=== PATIENT | female | born 1995 | race Caucasian/White ===

== ENCOUNTER 2022-09-13 13:33 | Outpatient (CLI) | payer BC, SELFPAY ==
--- NOTE | 2022-09-13 14:00 | CRLHL7_ITS ---
For Patients: As a result of the Century Cures Act, medical imaging exams and procedure reports are released immediately into your electronic medical record. You may view this report before your referring provider. If you have questions, please contact your health care provider. INDICATION: Evaluate anatomy. COMPARISON: 07/02/2022 TECHNIQUE: Real time norton scale imaging of the fetus was performed as well as color Doppler analysis of the umbilical vessels. FINDINGS: Sonographic imaging demonstrates a single living intrauterine gestation. Fetus demonstrates a regular cardiac rate of 137 beats per minute. Fetus has a longitudinal vertex position. The placenta lies posteriorly without evidence of placenta previa. The placental edge is 3.0 cm from the internal cervical os. Amniotic fluid volume appears normal. Single deepest vertical pocket: 4.0 cm. The cervix is closed and measures 3.7 cm in length. The composite ultrasound gestational age is calculated at 19 weeks 4 days with an estimated sonographic due date of 02/03/2023. The estimated weight is 287 grams which lies at the 33rd %. The following biometric measurements were obtained: Biparietal diameter: 4.5 cm/19 weeks 4 days 53rd% Head circumference: 16.4 cm/19 weeks 1 day 24th% Abdominal circumference: 13.9 cm/19 weeks 2 days 36th% Femur length: 3.0 cm/19 weeks 3 days 36th% The HC/AC ratio measures: 1.18 range (1.08-1.26) On anatomic survey, there is a normal appearance of the cerebral ventricles, cavum septi pellucidi, cisterna magna and cerebellum. The nose, lips, and facial profile appear normal. The cervical, thoracic and lumbar spine are well visualized and appear normal. There is a normal four-chamber heart view and the left and right ventricular outflow tracts appear normal. The diaphragm and stomach appear normal. The kidneys and bladder also appear normal. There is a normal three-vessel cord and cord insertion site. The four extremities appear normal. IMPRESSION: Normal OB ultrasound exam with concordance of clinical and sonographic dating. No intrinsic abnormalities noted on anatomic survey. Dictated by Samuel Esteban MD @ 09/16/2022 9:47:56 AM (Electronically Signed)
== END 2022-09-13 13:34 | disposition home or self-care (01) ==
LOC: US 13:34
PROVIDERS: Visit Provider Physician Assistant
DX: Z34.92 Encounter for supervision of normal pregnancy, unspecified, second trimester (principal); Z3A.19 19 weeks gestation of pregnancy
CPT/HCPCS: 76805

== ENCOUNTER 2022-11-11 08:27 | Outpatient (CLI) | payer BC, SELFPAY | END 2022-11-11 08:28 | disposition home or self-care (01) | LOC: NFLDREF 08:28 | PROVIDERS: Visit Provider Obstetrics & Gynecology | DX: O26.893 Other specified pregnancy related conditions, third trimester (principal); Z67.91 Unspecified blood type, Rh negative; Z3A.28 28 weeks gestation of pregnancy | CPT/HCPCS: 86592; 86850; J2791 ==

== ENCOUNTER 2023-01-10 13:37 | Outpatient (CLI) | payer BC, SELFPAY ==
[2023-01-11 13:56] LABS: Strep B DNA Probe Negative (Negative); Strep B Susceptibility Needed? No
== END 2023-01-10 13:38 | disposition home or self-care (01) ==
LOC: NFLDREF 13:38
PROVIDERS: Visit Provider Obstetrics & Gynecology
DX: Z34.93 Encounter for supervision of normal pregnancy, unspecified, third trimester (principal); Z3A.36 36 weeks gestation of pregnancy
CPT/HCPCS: 87081; 87653

== ENCOUNTER 2023-02-09 15:49 | Inpatient (IN) | payer BC, SELFPAY ==
[2023-02-09] VITALS (9 sets, daily range): BP systolic 119–132; BP diastolic 75–89; PULSE 82–99; RESP 16; TEMP 36.6–36.9; O2SAT 97; BMI 38.9
--- NOTE | 2023-02-09 16:37 | P.LDBA_ITS ---
Subjective History of Present Illness Date Seen: 02/09/23 Narrative: Patient is being admitted to Labor and Delivery for postdates induction of labor. She is a 27 year old at 40 weeks, 6 days gestation. Her full history and physical was dictated by Dr. Cain on 01/17/2023. Please see this for details. Specific Issues/Plans : Solomon. Baby: Boy! [place] Name 1. RH negative * Rhogam: 11/11/2022 2. Vaccine refusal * Patient declined flu, COVID booster, and Tdap 3. Elevated diastolic BP on 01/17/23, normal upon repeat RSV: 01/10/2023 COVID: Completed and boosted x1 TDap: Declines 11/27 and 01/10/2023 Flu: Declines 11/27 OB - Problem Based A/P Additional Plan (1) Post-dates : Status: Acute Plan Cook catheter placed using aseptic technique, and both intrauterine and intravaginal balloons inflated to 60 mL. Patient tolerated procedure well. Begin low-dose Pitocin at 9:00 p.m.. Continuous monitoring well Pitocin in use. Delivery/Labor/Induction Plan Induction method: Intracervical balloon catheter OB Result Labs GBS Status: negative OB Exam Physical Exam Vital signs: Temp Pulse Resp BP Pulse Ox 97.9 F 96 16 130/75 97 02/09/23 16:11 02/09/23 16:12 02/09/23 16:11 02/09/23 16:12 02/09/23 16:12 Narrative: Physical exam: General: No acute distress Psych: Alert and oriented x3, full affect HEENT: Normocephalic, atraumatic Neck: No cervical adenopathy, no thyromegaly Heart: Regular rate and rhythm, no murmur rub or gallop Lungs: Clear to auscultation bilaterally Abdomen: Soft, nontender, gravid, cephalic lie, 7.5 lb by Jordan's Pelvic exam: Cervix 1 cm, 50% effaced,-1 station, posterior, moderate consistency tracing: Baseline 120, accelerations present, decelerations, moderate variability. Detailed Labor and Delivery Exam Dilation (cm): 1 Effacement (%): 50 Cervix position: posterior Consistency: medium
[2023-02-09] MEDS: LACTATED RINGERS 1000 ML 1,000 ML 125 ML IV (20:55)
[2023-02-09 20:56] LABS: Basophils Percent Auto 0.1 % (0.0-3.0); Eosinophils Percent Auto 0.5 % (0.0-7.0); Hematocrit 38.2 % (33.0-51.0); Hemoglobin* 12.9 gm/dL (12.0-16.0); Immature Granulocytes Pct Auto 0.5 %; Lymphocytes Percent Auto 11.5 % (20-44); Mean Corpuscular HGB Conc 34 gm/dL (32-36); Mean Corpuscular Hemoglobin 30 pg (26-34); Mean Corpuscular Volume 90 fL (80-100); Monocytes Percent Auto 7.6 % (0.0-11.0); Neutrophils Percent Auto 79.8 % (42.0-72.0); Platelet Count* 251 K/uL (140-440); RDW Coefficient of Variation % 13.8 % (11.5-15.5); Red Blood Count 4.26 m/uL (4.00-5.20); White Blood Count* 14.91 K/uL (4.50-11.00)
[2023-02-09 21:00] LABS: Slide Review Reflex No
[2023-02-09] MEDS: OXYTOCIN 30 unit/500 ML in NS 30 UNIT/500 ML BAG IVPB (21:00)
[2023-02-09] MEDS: hydrOXYzine pamoate 25 MG CAPSULE 100 MG PO (22:18)
[2023-02-09] MEDS: MORPHINE 10 MG/ML inj IM (22:19)
[2023-02-10] VITALS (130 sets, daily range): BP systolic 71–170; BP diastolic 38–92; PULSE 83–142; RESP 16–18; TEMP 36.3–37; O2SAT 82–100
[2023-02-10] MEDS: LACTATED RINGERS 1000 ML 1,000 ML 125 ML IV ×3 (05:00→15:10)
--- NOTE | 2023-02-10 08:00 | PM.OBPNL ---
Subjective Time Seen by Provider: 08:00 Date Seen: 02/10/23 Objective Vital Signs: Last Vital Signs Temp 98 F 02/10/23 06:18 Pulse 109 H 02/10/23 07:57 Resp 18 02/10/23 06:18 BP 148/84 H 02/10/23 07:57 Pulse Ox 99 02/10/23 07:56 Pelvic Exam Dilation (cm): 5 Effacement (%): 90 Station: 0 Contractions Monitor mode: External Contraction Frequency: Q2 minutes Contraction pattern: Regular Contraction intensity: Strong/Firm Pitocin Rate (mU/min): 6 Assessment Assessment: active labor Status: Category ll Heart Rate Baseline: 120 Security System Administrator Variability: Moderate (6-25) Monitor Accelerations: Present Monitor Decelerations: Early Tracing Comments: Patient starting to have a few variables and some early decelerations. Spontaneously resolves with resolution of contraction. Labor Progress: Progressing appropriately Plan Plan: - Patient desires an epidural as she is significantly more uncomfortable within the last hour - Will contact anesthesia team
[2023-02-10] MEDS: ROPIVACAINE 0.2 % PF 10 ML INJ 20 MG EPIDURAL (08:01)
[2023-02-10] MEDS: ROPIVACAINE 0.2% 100 ml 100 ML 12 MG EPIDURAL (08:03)
[2023-02-10] MEDS: PHENYLEPHRINE 100 MCG/ML SYRINGE IVP ×6 (08:13→08:57)
[2023-02-10] MEDS: ePHEDrine sulfate 5 MG/ML inj 10 MG IVP ×2 (08:40→09:06)
[2023-02-10] MEDS: LACTATED RINGERS 1000 ML 1,000 ML 925 ML IV (09:25)
--- NOTE | 2023-02-10 09:43 | PM.OBPNL ---
Subjective Time Seen by Provider: 08:45 Date Seen: 02/10/23 Objective Vital Signs: Last Vital Signs Temp 98 F 02/10/23 06:18 Pulse 110 H 02/10/23 09:42 Resp 18 02/10/23 06:18 BP 101/57 L 02/10/23 09:42 Pulse Ox 96 02/10/23 09:09 Pelvic Exam Dilation (cm): 5 Effacement (%): 90 Station: 0 Contractions Monitor mode: External Contraction pattern: Regular Contraction intensity: Strong/Firm Pitocin Rate (mU/min): 6 Assessment Status: Category ll Heart Rate Baseline: 120 Monitor Accelerations: Present Monitor Decelerations: Late Tracing Comments: Patient with some prolonged and late decelerations shortly after epidural placement. Patient repositioned on her hands and knees. Pitocin stopped and FSE placed. Her hypotension was treated with phenylephrine and IV fluid bolus. FHR improved with resuscitative measures. Plan Plan: - Cervical exam unchanged - Expectant management for now - Will restart pitocin as needed after FHR recovery
--- NOTE | 2023-02-10 11:40 | P.OBPN_ITS ---
Subjective Time Seen by Provider: 12:42 Date Seen: 02/10/23 Objective Vital Signs: Last Vital Signs Temp 98.1 F 02/10/23 11:30 Pulse 120 H 02/10/23 11:34 Resp 18 02/10/23 11:30 BP 106/52 L 02/10/23 11:34 Pulse Ox 97 02/10/23 10:22 Pelvic Exam Dilation (cm): 5 Effacement (%): 90 Station: 0 Comments: Caput noted on exam. Contractions Monitor mode: External Contraction pattern: Irregular Contraction intensity: Moderate Pitocin Rate (mU/min): 0 Assessment Assessment: early labor Station: 0 Amniotic Membrane Status: SROM (0630) Status: Category ll Heart Rate Baseline: 120 Senior Living Variability: Moderate (6-25) Monitor Accelerations: Present Monitor Decelerations: Prolonged Tracing Comments: Patient had intermittent late and variable decelerations after epidural placement due to hypotension. After the hypotension was treated, patient had 7 minutes spontaneous prolonged deceleration down to the 90s without being on pitocin at 1017. Patient was repositioned and cervical exam was unchanged at that time. Positive scalp stim noted with cervical exam. Discussed with patient that we'll give her time for recovery, try starting pitocin if appropriate, and see how the fetus responses. After 30+ minutes of Cat I strip, Pitocin was restarted at 1150 at 2u. Patient contracts infrequently without pitocin. Patient had another prolonged decel (5 minutes) down to the 90s. Resolved with cessation of pitocin. strip still with moderate variability and accelerations. Cervical exam at that time as 5/90/0 with caput noted. Given that we are unable to start pitocin safely and she's not having many contractions without Pitocin, I believe it's safest to proceed with delivery. The patient was consented for section and blood. She understands that the four main categories of risk include pain, bleeding, infection, and damage to surrounding structures. Regarding infection, she understands that we will be delivering appropriate antibiotics, however that the risk of infection following section still is approximately 5%. She understands that though the risk is very low that there is always a risk of damage to the bladder, uterus, ovaries, fallopian tubes, bowels, ureters, or even the fetus. She understands t hat most injuries can be addressed at the time of surgery, however, such an injury may require additional surgeries to fix. Lastly, she understands that a section carries a risk of bleeding, and that while this bleeding can be addressed with multiple medical and surgical modalities, that there is the possibility of needing a blood transfusion. She reports she would accept a blood transfusion understanding the risks of a 1/200,000 risk of Hepatitis and 1/2,000,000 risk of HIV as well as the risk of having an allergic reaction to the blood products. She further understands that this reaction is typically mild, however can be severe including respiratory distress and necessitating ICU-level care. Lastly, she understands that a section does increase risks for future pregnancies and deliveries including, but not limited to, the risk of uterine rupture or placenta accreta. All questions answered to patient's and her spouse's (Aquilino) satisfaction. Would like to proceed with primary delivery. Consent signed and OR team notified.
[2023-02-10] MEDS: AZITHROMYCIN 500 MG in 0.9 % SODIUM CHLORIDE 250 ml 250 ML 255 MG IVPB (12:37)
[2023-02-10] MEDS: CEFAZOLIN 1 GM inj 3 GM IVP (12:57)
--- NOTE | 2023-02-10 13:33 | A.ANBPCNMD_ITS ---
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 Nonsmoker. 0-3 drinks per week. No illicit drug use. No concerns with safety or abuse What is your current living situation?: I presently have a place to live Problems where you live: no known problems In the past 12 months, utilities in danger of being shut off: no In past 12 months, lack of transportation kept you from medical appts, meetings, work, or getting things needed for daily living: no In the past 12 mos, have been you worried that your food would run out before you had money to buy more?: never true In the past 12 mos, the food you bought just didn't last and you didn't have money to buy more?: never true Smoking Status: Never smoker How often does anyone, including family, friends and others, physically hurt you : never How often does anyone, including family, friends and others, insult or talk down to you: never How often does anyone, including family, friends and others, threaten you with harm: never How often does anyone, including family, friends and others, scream or curse at you: never Little interest or pleasure in doing things: not at all Feeling down, depressed, or hopeless: not at all Meds Home Medications and Allergies Home Medications Medication Instructions Recorded Confirmed Type docosahexaenoic acid 200 mg 200 mg PO DAILY 07/02/22 02/10/23 History capsule ( DHA) cetirizine 10 mg capsule (Zyrtec) 10 mg PO QDAY PRN 08/29/22 02/09/23 History calcium carbonate 200 mg calcium 200 mg PO BID 12/25/22 02/09/23 History (500 mg) chewable tablet (Tums) Allergies Allergy/AdvReac Type Severity Reaction Status Date / Time No Known Drug Allergies Allergy Verified 02/03/23 09:16 Results Labs Labs: Laboratory Results - last 24 hr 02/09/23 20:49 WBC 14.91 H RBC 4.26 Hgb 12.9 Hct 38.2 MCV 90 MCH 30 MCHC 34 RDW Coeff of Frank 13.8 Plt Count 251 Neut % (Auto) 79.8 H Lymph % (Auto) 11.5 L [place] % (Auto) 7.6 Eos % (Auto) 0.5 Baso % (Auto) 0.1 Neut # (Auto) 11.90 H Lymph # (Auto) 1.70 [place] # (Auto) 1.10 H Eos # (Auto) 0.10 Baso # (Auto) 0.00 Abs Immat Gran (auto) 0.10 Imm/Tot Granulo (auto) 0.5 Blood Type A Negative Antibody Screen NEGATIVE Vital Signs Vital Signs: Last Vital Signs Temp 98.1 F 02/10/23 11:30 Pulse 137 H 02/10/23 12:36 Resp 18 02/10/23 11:30 BP 127/58 L 02/10/23 12:36 Pulse Ox 96 02/10/23 12:48 Weight: 99.79 kg Height: 160.02 cm Anesthesia Procedures - MDA Epidural Insertion Patient Location: OB Start Time: 07:40 Stop Time: 08:40 Start Date: 02/10/23 Stop Date: 02/10/23 Reason for Block: primary anesthetic Patient Position: sitting Performed By: William Fisher Preanesthetic Checklist: IV checked, risks and benefits discussed, surgical consent, monitors and equipment checked, pre-op evaluation, timeout performed and anesthesia consent Prep: chlorhexidine gluconate Monitoring: blood pressure monitoring, diagnostic cardiac sonographer, continuous pulse oximetry and heart rate Approach: midline Vertebral Space: lumbar (1-5) Needle Type: Tuohy needle Injection Technique: continuous catheter (catheter) Needle gauge: 17 Needle Length (cm): 10 cm Needle Insertion Depth (cm): 6 Catheter Gauge: 19 Catheter Type: multi-orifice Catheter at skin depth (cm): 11 Test Dose Result: negative and lidocaine 1.5% with epinephrine 1 to 200,000
--- NOTE | 2023-02-10 13:47 | P.OBPRC_ITS ---
Procedure Time Seen by Provider: 13:47 Date of procedure: 02/10/23 Procedure Done: Global [facility] bill your pro fee for this procedure?: Yes Procedure Description: DELIVERY BY SECTION Date of Service: 02/10/2023 Delivery time: 1310 Summary: Admitted for scheduled induction of labor at 41w0d due to late term , Primary Lower uterine transverse section, Pfannenstiel, Closed with sutures, QBL 153 cc, No complications, Findings: Normal uterus, bilateral ovaries and tubes 9,9 Weight 4015 g. Primary Indication: Nonreassuring heart rate tracing remote from delivery and unable to start Pitocin Procedures: Primary Lower uterine transverse section Specimens Removed: Placenta Surgeon: Sanam Weber MD Anesthesia: Epidural and TAP block Report: Prophylactic antibiotic, 2 g of Ancef and 500 mg of Azithromycin was given before patient was taken to OR. After arrival to the operating room patient was placed in the supine position with left lateral tilt after administration re- dosing of epidural anesthesia. Laparotomy A pfannenstiel incision was made through the anterior abdominal wall with #10 scalpel approximately 2 cm above the pubic symphysis. The incision was extended sharply with the #10 scalpel through the subcutaneous tissue to the level of fascia. The fascia was entered sharply with a #10 scalpel (Pfannenstiel) in the midline and extended in semi-elliptical fashion with digits and blunt dissection. The rectus muscles were in the midline bluntly with digits. The peritoneum was then entered bluntly. The peritoneal incision was then extended superiorly and inferiorly under direct visualization with care being taken to avoid bladder and bowel. No adhesions were noted. The peritoneal incision was enlarged bluntly by lateral traction from the surgeon's and first aid teacher's hand. Remington retractor was inserted into the abdomen. Delivery A bladder flap was not developed as it was low off the lower uterine segment. A low transverse hysterotomy was made then with #10 scalpel and extended laterally and cephalad with fingers in a low transverse fashion with Manu Mullen technique with care being taken to avoid injury to the fetus. Copious amount of umbilical cord protruded through the hysterotomy. Fetus was delivered cephalic. With delivery of the baby, no extension was noted. No nuchal cord noted. Placenta was delivered spontaneously with steady traction on cord and manual separation of placenta from uterine wall. Closure Uterine cavity was cleaned after placental delivery with lap sponge x 2. The hysterotomy was closed in two layers with stitches using 0 vicryl with continuous locking stitches and 0 monocryl imbricating layer. Hemostasis was achieved as needed with electrocautery. The ovaries/tubes/uterine surface were e valuated. They were found to be normal. Remington retractor removed and hemostasis was confirmed again. Fascia was closed with running stitches using 0 vicryl. Subcutaneous layer was irrigated. Hemostasis was checked for and found to be adequate. The subcutaneous layer was closed with running Vicryl sutures. The skin was closed with monocryl subcuticular sutures . The incision was cleaned, exofin applied and Mepilex dressing was used to cover the incision. The procedure was considered terminated at this time. Intraoperative Complications: None QBL: 153 cc Uterotonics: 40u of pitocin Disposition: The patient tolerated the procedure well. She was recovered in Obstetric PACU for close monitoring in stable condition, with a contracted uterus and normal transvaginal bleeding. The was sent to mother?s bedside. Cord blood obtained as mother is Rh negative. The placenta was sent to pathology due to unscheduled section and nonreassuring heart rate tracing during induction of labor. Debrief with OR team performed and specimen reviewed at the conclusion of the procedure. Pathology: specimen obtained, sent to pathology Surgery Debrief Performed: Yes Condition: stable Disposition: PACU
--- NOTE | 2023-02-10 14:13 | W.ANESCHARGE ---
Anesthesia Charges Start Date/Time Anesthesia Start Date: 02/10/23 Anesthesia Start Time: 12:54 Stop Date/Time Anesthesia Stop Date: 02/10/23 Anesthesia Stop Time: 14:08 Summary Emergency: REAL PROPERTY EVALUATOR
--- NOTE | 2023-02-10 14:14 | P.NB_ITS ---
Nerve Block Nerve Block Time Seen by Provider: 14:00 Date Seen: 02/10/23 Type of block requested by surgeon for post-operative analgesia: TAP Side: bilateral Time out performed: Yes Verification of patient name: Yes Verification of date of : Yes Site marking: site marked Name of person performing procedure: Pedro Eleanory Continuous monitoring Was continuous monitoring of O2 sat, B/P, conveyor monitor, recorded every 15 minutes?: Yes Procedure Checklist: sterile prep, needles and gloves Ultrasound guided. Images saved: Yes Medications given in 5ml increments after negative aspiration: Marcaine %: 0.25 mL: 30 and Exparel mL: 10 Patient tolerated procedure well: Yes Block Charges Block Charge (with Pro Fee): TAP Bilateral Use of Ultrasound Machine for Block: Yes- US Guidance/pain block
[2023-02-10] MEDS: KETOROLAC 30 MG/ML inj IVP (19:46)
[2023-02-10] MEDS: ENOXAPARIN 40 MG/0.4 ML INJ SUBCUT (21:58)
[2023-02-10] MEDS: ACETAMINOPHEN 500 MG TABLET 1000 MG PO (22:57)
[2023-02-11] VITALS (19 sets, daily range): BP systolic 108–122; BP diastolic 76–81; PULSE 87–112; RESP 15–17; TEMP 36.5–36.9; O2SAT 96–98
[2023-02-11] MEDS: KETOROLAC 30 MG/ML inj IVP ×3 (01:42→14:49)
[2023-02-11] MEDS: ACETAMINOPHEN 500 MG TABLET 1000 MG PO ×3 (05:29→18:39)
[2023-02-11 07:02] LABS: Hemoglobin* 10.3 gm/dL (12.0-16.0)
--- NOTE | 2023-02-11 07:23 | PM.OBPNVD1 ---
OB - PN:Subj Subjective Date Seen: 02/11/23 Patient comments OB post-: no complaints and tolerating diet status: and doing well feeding status: exclusively Narrative: The patient feels well.? The pain is well controlled with current medications.? She has no new complaints.? Urinary output is adequate and she is voiding without difficulty.? Has a good appetite, is tolerating a general diet, is not passing flatus, and has not had a bowel movement.?Encouraged ambulation and is not passing flatus by this afternoon to notify her nurse. Has scant amount of rubra lochia.? She is ambulating well.?She is and feels the latch is good when baby is awake enough. Encouraged working with the nurse on improving the latch today. OB - PN: Obj Exam Physical Exam: Vital signs: Temp Pulse Resp BP Pulse Ox O2 Del Method 98.4 F 87 16 108/76 96 Room Air 02/11/23 04:38 02/11/23 04:38 02/11/23 06:15 02/11/23 04:38 02/11/23 04:38 02/11/23 04:38 Narrative: GENERAL APPEARANCE:? normal affect, alert, no distress? MOOD:? appropriate? CHEST:? clear to auscultation and percussion? HEART:? regular rate and rhythm? ABDOMEN:? soft, non-tender the uterine fundus is U/2 and is appropriate for the stage of recovery.?Incision is coved by dressing that is clean, dry and intact. EXTREMITIES:? normal and no edema? Urinary Catheter Management: Urethral: Cath placed during this visit: yes, but has since been removed by the nurse Reason for continuing: decision to DC catheter Removal date: 02/10/23 Removal time: 21:30 OB - PN: Obj Data Labs Labs: Laboratory Results - last 24 hr 02/11/23 06:26 Hgb 10.3 L OB - PN: A/P Delivery Assessment and Plan (1) Lactating mother: Status: Acute (2) care following delivery: Status: Acute Plan day: 1 Plan: routine care Comments: Anticipate discharge home tomorrow or the following day per patient preference.
[2023-02-11] MEDS: DOCUSATE SODIUM 100 MG CAPSULE PO (08:45)
[2023-02-11] MEDS: IBUPROFEN 600 MG TABLET PO (21:35)
[2023-02-11] MEDS: ENOXAPARIN 40 MG/0.4 ML INJ SUBCUT (21:54)
[2023-02-12] MEDS: ACETAMINOPHEN 500 MG TABLET 1000 MG PO ×4 (00:15→19:30)
[2023-02-12 04:17] VITALS: BP 116/80; PULSE 99; RESP 16; TEMP 36.3; O2SAT 96
[2023-02-12] MEDS: IBUPROFEN 600 MG TABLET PO ×4 (04:20→22:32)
[2023-02-12] MEDS: LANOLIN CREAM 1 APPLIC TOPICAL (04:31)
--- NOTE | 2023-02-12 07:46 | P.OBPN_ITS ---
OB - PN:Subj Subjective Date Seen: 02/12/23 Patient comments OB post-: no complaints and pain well controlled [place] infant status: and doing well [place] feeding status: exclusively Narrative: Sky is a 27 y.o. who was admitted to L & D for post dates induction of labor.? She had an uncomplicated primary for non-reassuring heart tones.? ? The patient feels well.? The pain is well controlled with current medications.? She has no new complaints.? She is breast feeding and reports things are going well. She would like to see today for help.? the patient has done well.? Vitals have been stable.? She has remained afebrile.? Has a good appetite, is tolerating a general diet.? She is voiding without difficulty.? She is passing gas and has not yet had a bowel movement.? She is ambulating and denies any dizziness.? Has Small amount of rubra lochia.? OB - PN: Obj Exam Physical Exam: Vital signs: Temp Pulse Resp BP Pulse Ox O2 Del Method 97.4 F L 99 16 116/80 96 Room Air 02/12/23 04:17 02/12/23 04:17 02/12/23 04:17 02/12/23 04:17 02/12/23 04:17 02/12/23 04:17 Narrative: GENERAL APPEARANCE:? normal affect, alert, no distress MOOD:? appropriate CHEST:? clear to auscultation HEART:? regular rate and rhythm ABDOMEN:? soft, non-tender the uterine fundus is 2 cm below the Umbilicus, Midline and is appropriate for the stage of recovery. EXTREMITIES:? normal and 2+ edema. Incision: Healing well, no surrounding erythema, abnormal induration or discharge Urinary Catheter Management: Urethral: Cath placed during this visit: yes, but has since been removed by the nurse Reason for continuing: decision to DC catheter Removal date: 02/10/23 Removal time: 21:30 OB - PN: A/P Delivery Assessment and Plan (1) Lactating mother: Status: Acute (2) care following delivery: Status: Acute Plan day: 2 Plan: routine care Comments: Assessment/Plan?G 1 P 1 status post uncomplicated primary .? ?? 1.? Continue route PP cares? 2.? .? May see if desired? 3.? Anticipate discharge home tomorrow ? 4. Rh negative status. [place] is Rh negative, no Rhogam needed. ?
[2023-02-12 09:04] VITALS: BP 121/81; PULSE 102; RESP 16; O2SAT 96
[2023-02-12] MEDS: DOCUSATE SODIUM 100 MG CAPSULE PO (10:09)
[2023-02-12 16:29] VITALS: BP 126/87; PULSE 102; RESP 16; O2SAT 96
[2023-02-12 19:30] VITALS: BP 124/86; PULSE 100; RESP 20; TEMP 36.5; O2SAT 97
[2023-02-12] MEDS: ENOXAPARIN 40 MG/0.4 ML INJ SUBCUT (19:31)
[2023-02-13] MEDS: ACETAMINOPHEN 500 MG TABLET 1000 MG PO ×2 (01:34→08:15)
[2023-02-13 04:00] VITALS: BP 113/82; PULSE 94; RESP 18; TEMP 36.4; O2SAT 97
[2023-02-13] MEDS: IBUPROFEN 600 MG TABLET PO (04:29)
--- NOTE | 2023-02-13 07:41 | PM.OBDSVD1 ---
DS: Providers Provider Date Seen: 02/13/23 Date of admission: 02/09/23 15:49 Primary care physician: Not a Local Provider Admitting Clinician: Sanam Weber MD Attending Physician on discharge: Alissa Marcum CNM DS: Diagnosis Discharge Diagnosis (1) care following delivery: Status: Acute (2) Lactating mother: Status: Acute Exam Narrative: Exam Narrative: GENERAL APPEARANCE:? normal affect, alert, no distress MOOD:? appropriate CHEST:? clear to auscultation HEART:? regular rate and rhythm ABDOMEN:? soft, non-tender the uterine fundus is 1 below Umbilicus, Midline and is appropriate for the stage of recovery. EXTREMITIES:? normal and trace edema Incision: Healing well, no surrounding erythema, abnormal induration or discharge Const: Vital Signs, click to edit/add: Vital Signs - 24 hr 02/12/23 09:04 02/12/23 16:29 02/12/23 19:30 Temperature 97.7 F Pulse Rate [Pulse Oximeter] 102 H 102 H 100 Respiratory Rate 16 16 20 Blood Pressure [Ri ght Arm] 121/81 126/87 124/86 Pulse Oximetry 96 96 97 Oxygen Delivery Me thod Room Air Room Air Room Air 02/13/23 04:00 Temperature 97.5 F L Pulse Rate [Pulse Oximeter] 94 Respiratory Rate 18 Blood Pressure [Ri ght Arm] 113/82 Pulse Oximetry 97 Oxygen Delivery Me thod Room Air Documenting provider has reviewed patient's vital signs: yes OB - DS: Summary Hospital Course Hospital Course: Sky is a 27 y.o. G 1 P 1 who was admitted to [facility] for IOL for post-dates. ?She had a section that was uncomplicated. The patient feels well. ?The pain is well controlled with current medications. ?She has no new complaints. ?She is breast feeding and reports things are going well. Her milk has come in and she has already put multiple bottles in the fridge. the patient has done well.? Vitals have been stable.? She has remained afebrile.? Has a good appetite, is tolerating a general diet. ?She is voiding without difficulty.? She is passing gas and has had a bowel movement.? She is ambulating and denies any dizziness.? Has small amount of rubra lochia. She is considering an IUD for prevention. Problems: none plan: Discharge home with baby. Follow up in 2 weeks and 6 weeks. , may see if needed Hgb 10.3. Peripartum Data Infant delivery method: Primary C/S; Labored Laceration description: None Procedures: Procedures Operation Date: 02/10/23 13:00 Actual Procedure Side Surgeon p Section Sanam Weber MD complications: none Infant Gender: Male Discharge Plan: Home Status at Discharge Functional status at discharge: independent ambulation Overall status at discharge: patient is progressing back to baseline Time Spent with Patient Time attestation: Total time spent providing and/or coordinating discharge services: Discharge Plan Discharge Disposition: Home, Self-Care Date of Admission: 02/09/23 15:49 Primary Care Provider: Provider,Not a Local Condition: Stable Anticipated Discharge Date/Time: 02/13/23 12:00 Discharge Medications: New acetaminophen 500 mg Tablet 1,000 mg PO Q6H PRN (Reason: Pain) Qty: 0 0RF docusate sodium 100 mg Capsule 100 mg PO DAILY Qty: 90 0RF ibuprofen 600 mg Tablet 600 mg PO Q6H PRN (Reason: Pain) Qty: 60 0RF oxycodone 5 mg Tablet 5 - 10 mg PO Q4H PRN (Reason: Pain) Qty: 10 0RF Continued calcium carbonate [Tums] 200 mg calcium (500 mg) tablet,chewable 200 mg PO BID DHA 200 mg capsule 200 mg PO DAILY Zyrtec 10 mg capsule 10 mg PO QDAY PRN nystatin 100,000 unit/gram powder 1 applic topical QID PRN (Reason: rash) Qty: 30 3RF Discharge Orders: Discharge Order (Routine); Ordered 02/13/23 Ordered By: Alissa Marcum Patient Education: OB Over the Counter Medication Information, OB /Breast Feeding Additional Instructions: Discharge instructions were reviewed with the patient including signs and symptoms of infection and home going medications Lifting Restrictions: 20 pounds for 6 weeks No not submerge incision under water X 2 weeks? Nothing vaginally for 6 weeks: no tampons or intercourse Do not drive while taking narcotic pain medication(s) Off Work or School for 8 weeks 2-week visit: incision check, discuss feeding concerns, review control options and screen for anxiety/depression. 6-week visit for an annual exam. consultation services are available to all mothers and babies for the first year after delivery.? To make an appointment, please call [phone]. Activity Level: Activity as Tolerated Discharge Diet: Regular Follow Up Appointments: Provider,Not a Local [Primary Care Provider] - Forms: [employer] Info Instructions
[2023-02-13] MEDS: DOCUSATE SODIUM 100 MG CAPSULE PO (08:16)
[2023-02-13 08:24] VITALS: BP 115/79; PULSE 80; RESP 16; TEMP 36.4; O2SAT 97
== END 2023-02-13 11:11 | disposition home or self-care (01) | DRG 540 ==
PROVIDERS: Obstetrics & Gynecology; Admitting Provider Obstetrics & Gynecology; Visit Provider Obstetrics & Gynecology
PROC: 10D00Z1 Extraction of Products of Conception, Low, Open Approach (ICD-10-PCS; CPT 59514; principal; 2023-02-10 12:45)
DX: O48.0 Post-term pregnancy (principal); O26.893 Other specified pregnancy related conditions, third trimester; Z67.91 Unspecified blood type, Rh negative; O76 Abnormality in fetal heart rate and rhythm complicating labor and delivery; I95.89 Other hypotension; Z37.0 Single live birth; Z3A.40 40 weeks gestation of pregnancy; G89.18 Other acute postprocedural pain
CPT/HCPCS: 01967; 01968; 36415; 59200; 64488; 76942; 85018; 85025; 86850; 86900; 86901; 88307; 99140; A9270; C1726; C9290; J0456; J0665; J0690; J1100; J1650; J1885; J2270; J2274; J2371; J2405; J2590; J2795; J7050; J7120

== ENCOUNTER 2024-05-03 14:13 | Outpatient (CLI) | payer BC, SELFPAY | END 2024-05-03 14:14 | disposition home or self-care (01) | LOC: NFLDREF 14:14 | PROVIDERS: Visit Provider Obstetrics & Gynecology | DX: Z13.220 Encounter for screening for lipoid disorders (principal) | CPT/HCPCS: 80061 ==

== ENCOUNTER 2025-01-04 08:04 | Outpatient (CLI) | payer BC, SELFPAY ==
--- NOTE | 2025-01-04 08:15 | CRLHL7_ITS ---
For Patients: As a result of the Century Cures Act, medical imaging exams and procedure reports are released immediately into your electronic medical record. You may view this report before your referring provider. If you have questions, please contact your health care provider. OBSTETRICAL ULTRASOUND TRANSVAGINAL CLINICAL INDICATION: Dating and viability. Surgery: . LMP: 11/02/2024 SAMUEL by LMP: 08/09/2025 Gestational age: 9 weeks 0 days TECHNIQUE: Real-time norton-scale imaging of the fetus was performed transvaginal. Transvaginal imaging was performed for better visualization of the endometrium and ovaries. FINDINGS: CRL: 1.9 cm, 8 weeks 3 days; SAMUEL 08/13/2025 heart rate: 171 BPM Gestational sac: 4.1 cm, appears within normal limits Yolk sac: 3.4 mm, appears within normal limits Right ovary: Within normal limits; 4.8 x 2.1 x 2.4 cm, CL Left ovary: Within normal limits; 2.9 x 1.8 x 1.7 cm COMMENT: Right ovary corpus luteal cyst measures 2 x 1.2 x 2.2 cm. IMPRESSION: 1. Single living intrauterine measures 8 weeks 3 days with sonographic due date of 08/13/2025. 2. Corpus luteal cyst of right ovary. 3. Fundal subchorionic hemorrhage measures 1.3 x 0.6 x 1.7 cm. SAMUEL MAYNARD M.D. Diagnostic Radiologist [email or web address] Transcribed: 10:[address]/Dictated by: Samuel Maynard MD @ 01/04/2025 9:17:00 AM (Electronically Signed)
== END 2025-01-04 08:05 | disposition home or self-care (01) ==
LOC: US 08:04
PROVIDERS: Visit Provider Physician Assistant
DX: O34.81 Maternal care for other abnormalities of pelvic organs, first trimester (principal); N83.11 Corpus luteum cyst of right ovary; O20.9 Hemorrhage in early pregnancy, unspecified; Z3A.09 9 weeks gestation of pregnancy
CPT/HCPCS: 76817

== ENCOUNTER 2025-01-04 09:02 | Outpatient (CLI) | payer BC, SELFPAY | END 2025-01-04 09:03 | disposition home or self-care (01) | PROVIDERS: Visit Provider Physician Assistant | DX: Z34.81 Encounter for supervision of other normal pregnancy, first trimester (principal); Z3A.13 13 weeks gestation of pregnancy | CPT/HCPCS: 83020; 83021; 85660; 86592; 86703; 86704; 86706; 86762; 86787; 86803; 86850; 86900; 86901; 87086; 87340; 87491; 87591 ==